=== PATIENT | male | born 1995 | race Caucasian/White ===

== ENCOUNTER 2018-02-03 14:50 | Emergency (ER) | payer SELFPAY ==
[~2018-02-03] VITALS: Ht 180.3 cm; Wt 113.4 kg
--- NOTE | 2018-02-03 15:18 | ED.ADGEN ---
Past History Past Medical History: No Pertinent History Past Surgical History: No Surgical History Alcohol Use: Occasionally Drug Use: Cocaine, Marijuana Adult General Chief Complaint Chief Complaint Left forearm redness and pain HPI HPI The patient was injecting methamphetamines on 2 days ago into his left arm and since then has had left forearm swelling, redness and pain. He notes no fevers or other injury. ROM of left arm and hand intact, no numbness or weakness. Review of Systems Review of Systems Constitutional: Denies fever or chills Eyes: Denies change in visual acuity, redness, or eye pain HENT: Denies nasal congestion or sore throat Respiratory: Denies cough or shortness of breath Cardiovascular: Denies chest pain or palpitations GI: Denies abdominal pain, nausea, vomiting, bloody stools or diarrhea : Denies dysuria or hematuria Musculoskeletal: Denies back pain or joint pain Integument: Denies rash. Left forearm redness, pain and swelling. No drainage Neurologic: Denies headache, focal weakness or sensory changes Endocrine: Denies polyuria or polydipsia All other systems were reviewed and found to be within normal limits, except as documented in this note. Current Medications Current Medications Current Medications Medications (Trade) Dose Ordered Sig/Joshua Start Time Stop Time Status Last Admin Dose Admin Clindamycin Phosphate 50 ml @ 100 mls/hr 1X ONCE 02/03/18 15:50 02/03/18 16:19 DC 02/03/18 16:03 100 MLS/HR Diphtheria/ Tetanus/Acell Pertussis (Boostrix) 0.5 ml ONCE ONCE 02/03/18 15:45 02/03/18 15:46 DC 02/03/18 16:06 0.5 ML Allergies Allergies Allergies Coded Allergies Type Severity Reaction Last Updated Verified No Known Drug Allergies 06/09/16 No Physical Exam Physical Exam Constitutional: Well developed, well nourished, no acute distress, non-toxic appearance. HENT: Normocephalic, atraumatic, bilateral external ears normal, oropharynx moist, no oral exudates, nose normal. Eyes: PERRLA, EOMI, conjunctiva normal, no discharge. Neck: Normal range of motion, no tenderness, supple, no stridor. Cardiovascular:Heart rate regular rhythm, no murmur Lungs & Thorax: Bilateral breath sounds clear to auscultation Abdomen: Bowel sounds normal, soft, no tenderness, no masses, no pulsatile masses. Skin: Warm, dry, no erythema, no rash. Back: No tenderness, no CVA tenderness. Extremities: With left forearm tenderness, erythema, induration and swelling, no fluctuance or drainage, no cyanosis, no clubbing, ROM intact, no edema. DNVI. Neurologic: Alert and oriented X 3, normal motor function, normal sensory function, no focal deficits noted. Psychologic: Affect normal, judgement normal, mood normal. Current Patient Data Vital Signs Vital Signs Date Time Temp Pulse Resp B/P (MAP) Pulse Ox O2 Delivery O2 Flow Rate FiO2 02/03/18 17:00 100 20 150/90 (110) 95 Room Air 02/03/18 14:50 97.0 Lab Results Laboratory Tests Test 02/03/18 15:30 White Blood Count 8.9 x10^3/uL (4.0-11.0) Red Blood Count 5.43 x10^6/uL (4.30-5.70) Hemoglobin 15.9 g/dL (13.0-17.5) Hematocrit 46.1 % (39.0-53.0) Mean Corpuscular Volume 85 fL (79-100) Mean Corpuscular Hemoglobin 29 pg (25-35) Mean Corpuscular Hemoglobin Concent 35 g/dL (31-37) Red Cell Distribution Width 13.3 % (11.5-14.5) Platelet Count 258 x10^3/uL (140-400) Neutrophils (%) (Auto) 57 % (31-73) Lymphocytes (%) (Auto) 33 % (24-48) Monocytes (%) (Auto) 9 % (0-9) Eosinophils (%) (Auto) 1 % (0-3) Basophils (%) (Auto) 0 % (0-3) Neutrophils # (Auto) 5.0 x10^3uL (1.8-7.7) Lymphocytes # (Auto) 3.0 x10^3/uL (1.0-4.8) Monocytes # (Auto) 0.8 x10^3/uL (0.0-1.1) Eosinophils # (Auto) 0.1 x10^3/uL (0.0-0.7) Basophils # (Auto) 0.0 x10^3/uL (0.0-0.2) Sodium Level 138 mmol/L (136-145) Potassium Level 3.8 mmol/L (3.5-5.1) Chloride Level 103 mmol/L (98-107) Carbon Dioxide Level 31 mmol/L (21-32) Anion Gap 4 (6-14) L Blood Urea Nitrogen 13 mg/dL (8-26) Creatinine 0.9 mg/dL (0.7-1.3) Estimated GFR (Cockcroft-Gault) 104.6 Glucose Level 91 mg/dL (70-99) Calcium Level 9.7 mg/dL (8.5-10.1) Laboratory Tests Test 02/03/18 15:30 White Blood Count 8.9 x10^3/uL Red Blood Count 5.43 x10^6/uL Hemoglobin 15.9 g/dL Hematocrit 46.1 % Mean Corpuscular Volume 85 fL Mean Corpuscular Hemoglobin 29 pg Mean Corpuscular Hemoglobin Concent 35 g/dL Red Cell Distribution Width 13.3 % Platelet Count 258 x10^3/uL Neutrophils (%) (Auto) 57 % Lymphocytes (%) (Auto) 33 % Monocytes (%) (Auto) 9 % Eosinophils (%) (Auto) 1 % Basophils (%) (Auto) 0 % Neutrophils # (Auto) 5.0 x10^3uL Lymphocytes # (Auto) 3.0 x10^3/uL Monocytes # (Auto) 0.8 x10^3/uL Eosinophils # (Auto) 0.1 x10^3/uL Basophils # (Auto) 0.0 x10^3/uL Sodium Level 138 mmol/L Potassium Level 3.8 mmol/L Chloride Level 103 mmol/L Carbon Dioxide Level 31 mmol/L Anion Gap 4 Blood Urea Nitrogen 13 mg/dL Creatinine 0.9 mg/dL Estimated GFR (Cockcroft-Gault) 104.6 Glucose Level 91 mg/dL Calcium Level 9.7 mg/dL Current Medications Medications (Trade) Dose Ordered Sig/Joshua Route PRN Reason Start Time Stop Time Status Last Admin Dose Admin Diphtheria/ Tetanus/Acell Pertussis (Boostrix) 0.5 ml ONCE ONCE VAX IM 02/03/18 15:45 02/03/18 15:46 DC 02/03/18 16:06 0.5 ML Clindamycin Phosphate 50 ml @ 100 mls/hr 1X ONCE IV 02/03/18 15:50 02/03/18 16:19 DC 02/03/18 16:03 100 MLS/HR EKG EKG [] Radiology/Procedures Radiology/Procedures [address] [id number] IMAGING REPORT Signed PATIENT: NIGEL CRUZ ACCOUNT: [id number] : 1995 LOCATION: ER AGE: 22 SEX: M EXAM STATUS: PRE ER ORD. PHYSICIAN: RAVIN MEJAI MD REASON: FB evalu PROCEDURE: FOREARM LEFT Left forearm radiograph 02/03/2018 3:42 PM INDICATION: Left forearm pain and swelling. Foreign body. COMPARISON: None available. TECHNIQUE: 2 views of the left forearm are provided. FINDINGS: There is no acute fracture or dislocation. Bone mineralization is within normal limits. Joint spaces are maintained. Regional soft tissues are within normal limits. There is no soft tissue gas or osseous erosion. IMPRESSION: No acute fracture or dislocation. No radiopaque foreign bodies visualized. Electronically signed by: Patrick Jacobo MD (02/03/2018 3:58 PM) [facility] [place] DICTATED AND SIGNED BY: PATRICK JACOBO MD DATE: 02/03/18 155 CC: RAVIN MEJIA MD; PCP,NO ~ Course & Med Decision Making Course & Med Decision Making Patient presents with left forearm redness and pain after injecting amphetamines DDx-abscess, cellulitis, Foreign body 16:55 Patient's left forearm pain and swelling improved after IV clindamycin with decreased erythema. There was no fluctuance. Left forearm x-ray was unremarkable, no FB or fracture. Labs unremarkable. Patient was given TDAP IM. Patient was advised to stop using drugs and to take antibiotics as prescribed. Patient advised to return to emergency department if he develops worse pain or swelling redness fevers Final Impression Final Impression Clinical Impression Left Forearm Cellulitis Methamphetamine abuse Dragantolin Disclaimer Hansa Disclaimer This electronic medical record was generated, in whole or in part, using a voice recognition dictation system. Departure Departure: Impression: Primary Impression: Cellulitis of left forearm Additional Impression: Methamphetamine abuse Disposition: 01 HOME, SELF-CARE Condition: STABLE Referrals: CHELLE CLARKE MD Follow-up on Monday for further evaluation Patient Instructions: Cellulitis, Cyyg-hs-Hgmt, Methamphetamine Abuse, Complications Scripts Cephalexin (KEFLEX) 500 Mg Capsule 1 CAP PO TID, #30 CAP Prov: RAVIN MEJIA MD 02/03/18 Sulfamethoxazole/Trimethoprim (BACTRIM DS TABLET) 1 Each Tablet 2 TAB PO BID, #40 TAB Prov: RAVIN MEJIA MD 02/03/18 RAVIN MEJIA MD Feb 03, 2018 15:18
[2018-02-03] MEDS ORDERED: DIPHTH,PERTUSS(ACELL),TET TOX 0.5 ML DISP.SYRIN. VAX IM ONE (15:45)
[2018-02-03] MEDS ORDERED: CLINDAMYCIN 900MG PREMIX 50 ML IV ONE (15:50)
[2018-02-03 15:51] LABS: BASO % 0 % (0-3); EOS # 0.1 x10^3/uL (0.0-0.7); EOS % 1 % (0-3); HEMATOCRIT 46.1 % (39.0-53.0); HEMOGLOBIN 15.9 g/dL (13.0-17.5); LYMPH % 33 % (24-48); MEAN CORPUSCULAR HEMOGLOBIN 29 pg (25-35); MEAN CORPUSCULAR HGB CONC 35 g/dL (31-37); MEAN CORPUSCULAR VOLUME 85 fL (79-100); MONO # 0.8 x10^3/uL (0.0-1.1); MONO % 9 % (0-9); NEUT % 57 % (31-73); PLATELET COUNT 258 x10^3/uL (140-400); RED BLOOD COUNT 5.43 x10^6/uL (4.30-5.70); RED CELL DISTRIBUTION WIDTH 13.3 % (11.5-14.5); WHITE BLOOD COUNT 8.9 x10^3/uL (4.0-11.0)
[2018-02-03 15:55] LABS: CALCIUM 9.7 mg/dL (8.5-10.1); CREATININE 0.9 mg/dL (0.7-1.3); GFR 104.6; POTASSIUM 3.8 mmol/L (3.5-5.1)
--- NOTE | 2018-02-03 16:01 | RAD ---
Left forearm radiograph 02/03/2018 3:42 PM INDICATION: Left forearm pain and swelling. Foreign body. COMPARISON: None available. TECHNIQUE: 2 views of the left forearm are provided. FINDINGS: There is no acute fracture or dislocation. Bone mineralization is within normal limits. Joint spaces are maintained. Regional soft tissues are within normal limits. There is no soft tissue gas or osseous erosion. IMPRESSION: No acute fracture or dislocation. No radiopaque foreign bodies visualized. Electronically signed by: Roxie Pugh MD (02/03/2018 3:58 PM) [facility] [place]
[2018-02-03 17:00] VITALS: BP 150/90
[2018-02-03] MEDS ORDERED: CEPH-264 PO (17:03)
[2018-02-03] MEDS ORDERED: SULF1TAB24 PO (17:03)
== END 2018-02-03 17:10 | disposition home or self-care (01) ==
LOC: ER 14:50
DX: L03.114 Cellulitis of left upper limb (principal); F15.10 Other stimulant abuse, uncomplicated
CPT/HCPCS: 36415; 73090; 80048; 85025; 90471; 90715; 96365; 99285; J3490

== ENCOUNTER 2018-06-13 00:13 | Emergency (ER) | payer SELFPAY ==
[~2018-06-13] VITALS: Ht 180.3 cm; Wt 120.2 kg
[~2018-06-13 00:13] MED LIST: CEPH-264 PO; SULF1TAB24 PO
[2018-06-13] MEDS ORDERED: SULF1TAB24 PO (00:34)
--- NOTE | 2018-06-13 00:38 | PHYS DOC ---
Adult General Chief Complaint Chief Complaint dog bite HPI HPI dog bite to left arm , 1 weeka go , pus drainged on left arm, redness, no fever Review of Systems Review of Systems Constitutional: Denies fever or chills [] Eyes: Denies change in visual acuity, redness, or eye pain [] HENT: Denies nasal congestion or sore throat [] Respiratory: Denies cough or shortness of breath [] Cardiovascular: No additional information not addressed in HPI [] GI: Denies abdominal pain, nausea, vomiting, bloody stools or diarrhea [] : Denies dysuria or hematuria [] Musculoskeletal: Denies back pain or joint pain [] Integument: Denies rash or skin lesions [] Neurologic: Denies headache, focal weakness or sensory changes [] Endocrine: Denies polyuria or polydipsia [] All other systems were reviewed and found to be within normal limits, except as documented in this note. Allergies Allergies Allergies Coded Allergies Type Severity Reaction Last Updated Verified No Known Drug Allergies 06/09/16 No Physical Exam Physical Exam Constitutional: Well developed, well nourished, no acute distress, non-toxic appearance. [] HENT: Normocephalic, atraumatic, bilateral external ears normal, oropharynx moist, no oral exudates, nose normal. [] Eyes: PERRLA, EOMI, conjunctiva normal, no discharge. [] Neck: Normal range of motion, no tenderness, supple, no stridor. [] Cardiovascular:Heart rate regular rhythm, no murmur [] Lungs & Thorax: Bilateral breath sounds clear to auscultation [] Abdomen: Bowel sounds normal, soft, no tenderness, no masses, no pulsatile masses. [] Skin: red, swollen, tender arm[] Back: No tenderness, no CVA tenderness. [] Extremities: No tenderness, no cyanosis, no clubbing, ROM intact, no edema. [] Neurologic: Alert and oriented X 3, normal motor function, normal sensory function, no focal deficits noted. [] Psychologic: Affect normal, judgement normal, mood normal. [] EKG EKG [] Radiology/Procedures Radiology/Procedures [] Course & Med Decision Making Course & Med Decision Making Pertinent Labs and Imaging studies reviewed. (See chart for details) [] Final Impression Final Impression [] Problems: (1) Dog bite of extremity Dragon Disclaimer Dragon Disclaimer This electronic medical record was generated, in whole or in part, using a voice recognition dictation system. OMEGA JIMÉNEZ MD Jun 13, 2018 00:38
[2018-06-13 01:12] VITALS: BP 164/108
== END 2018-06-13 01:00 | disposition home or self-care (01) ==
LOC: ER 00:13
DX: S41.152A Open bite of left upper arm, initial encounter (principal); W54.0XXA Bitten by dog, initial encounter; Y93.89 Activity, other specified; Y92.89 Other specified places as the place of occurrence of the external cause; Y99.8 Other external cause status
CPT/HCPCS: 99283

== ENCOUNTER 2018-08-09 19:20 | Inpatient (IN) | payer SELFPAY ==
[~2018-08-09] VITALS: Ht 180.3 cm; Wt 114.0 kg
[2018-08-09] MEDS ORDERED: VANCOMYCIN PER PHARMACY MC ONE (19:45)
[2018-08-09] MEDS ORDERED: IV NORMAL SALINE 1,000ML 1,000 ML IV SCH (19:45)
[2018-08-09] MEDS ORDERED: VANCOMYCIN 1 GM VIAL. ONE ×2 (19:50→20:03)
[2018-08-09] MEDS ORDERED: IV NORMAL SALINE 500ML 500 ML ONE (19:50)
[2018-08-09] MEDS ORDERED: VANCOMYCIN 2 GM in IV NORMAL SALINE 500ML 500 ML IV ONE (20:00)
[2018-08-09 20:01] LABS: BASO % 0 % (0-3); EOS % 0 % (0-3); HEMATOCRIT 44.1 % (39.0-53.0); LYMPH # 1.7 x10^3/uL (1.0-4.8); LYMPH % 17 % (24-48); MEAN CORPUSCULAR HEMOGLOBIN 29 pg (25-35); MEAN CORPUSCULAR HGB CONC 34 g/dL (31-37); MEAN CORPUSCULAR VOLUME 86 fL (79-100); MONO # 0.9 x10^3/uL (0.0-1.1); MONO % 8 % (0-9); NEUT # 7.5 x10^3uL (1.8-7.7); NEUT % 74 % (31-73); PLATELET COUNT 215 x10^3/uL (140-400); RED BLOOD COUNT 5.15 x10^6/uL (4.30-5.70); RED CELL DISTRIBUTION WIDTH 13.6 % (11.5-14.5); WHITE BLOOD COUNT 10.2 x10^3/uL (4.0-11.0)
--- NOTE | 2018-08-09 20:07 | PHYS DOC ---
Past History Past Medical History: No Pertinent History Past Surgical History: Cervical Fusion, Other Alcohol Use: Occasionally Drug Use: Cocaine Adult General Chief Complaint Chief Complaint: FOOT INJURY PAIN HPI HPI Patient is a 23-year-old male who presents with complaint of swelling, pain and redness to his left foot. Patient reportedly had a small ulceration to the dorsum of his second toe a few weeks ago and he admits to picking at it. He states that 2 days ago he started to get some increased pain and yesterday had gone out working on his car for about 8 hours and when he got back he had a lot of pain, swelling and redness in his foot. He denies any fever, nausea or vomiting. Review of Systems Review of Systems Constitutional: Denies fever or chills [] Respiratory: Denies cough or shortness of breath [] Cardiovascular: No additional information not addressed in HPI [] Musculoskeletal: Positive left foot swelling, redness and pain [] Integument: Denies rash [] All other systems were reviewed and found to be within normal limits, except as documented in this note. Current Medications Current Medications Current Medications Medications (Trade) Dose Ordered Sig/Joshua Start Time Stop Time Status Last Admin Dose Admin Sodium Chloride 500 ml @ As Directed STK-MED ONCE 08/09/18 19:50 08/09/18 19:52 DC Vancomycin HCl (Vanco Per Pharmacy) 1 each 1X ONCE 08/09/18 19:45 08/09/18 19:47 DC Vancomycin HCl (Vancomycin) 1 gm STK-MED ONCE 08/09/18 19:50 08/09/18 19:52 DC Vancomycin HCl 2 gm/Sodium Chloride 500 ml @ 250 mls/hr 1X ONCE 08/09/18 20:00 08/09/18 21:59 08/09/18 19:56 250 MLS/HR Allergies Allergies Allergies Coded Allergies Type Severity Reaction Last Updated Verified No Known Drug Allergies 06/09/16 No Physical Exam Physical Exam Constitutional: Well developed, well nourished, no acute distress, non-toxic appearance. [] HENT: Normocephalic, atraumatic, bilateral external ears normal, oropharynx moist, no oral exudates, nose normal. [] Eyes: PERRLA, EOMI, conjunctiva normal, no discharge. [] Neck: Normal range of motion, no tenderness, supple, no stridor. [] Cardiovascular: Regular rate and rhythm [] Lungs & Thorax: Bilateral breath sounds clear to auscultation [] Abdomen: Bowel sounds normal, soft, no tenderness. [] Skin: Dorsum of left foot demonstrates moderate soft tissue swelling with warmth , tenderness and erythema. There is some lymphangitic streaking. [] Extremities: No cyanosis, no clubbing, ROM intact, no edema. [] Neurologic: Alert and oriented X 3, no focal deficits noted. [] Current Patient Data Vital Signs Vital Signs Date Time Temp Pulse Resp B/P (MAP) Pulse Ox O2 Delivery O2 Flow Rate FiO2 08/09/18 19:20 98.5 109 18 99 Room Air Lab Results Laboratory Tests Test 08/09/18 19:40 White Blood Count 10.2 x10^3/uL (4.0-11.0) Red Blood Count 5.15 x10^6/uL (4.30-5.70) Hemoglobin 15.0 g/dL (13.0-17.5) Hematocrit 44.1 % (39.0-53.0) Mean Corpuscular Volume 86 fL (79-100) Mean Corpuscular Hemoglobin 29 pg (25-35) Mean Corpuscular Hemoglobin Concent 34 g/dL (31-37) Red Cell Distribution Width 13.6 % (11.5-14.5) Platelet Count 215 x10^3/uL (140-400) Neutrophils (%) (Auto) 74 % (31-73) H Lymphocytes (%) (Auto) 17 % (24-48) L Monocytes (%) (Auto) 8 % (0-9) Eosinophils (%) (Auto) 0 % (0-3) Basophils (%) (Auto) 0 % (0-3) Neutrophils # (Auto) 7.5 x10^3uL (1.8-7.7) Lymphocytes # (Auto) 1.7 x10^3/uL (1.0-4.8) Monocytes # (Auto) 0.9 x10^3/uL (0.0-1.1) Eosinophils # (Auto) 0.0 x10^3/uL (0.0-0.7) Basophils # (Auto) 0.0 x10^3/uL (0.0-0.2) EKG EKG [] Radiology/Procedures Radiology/Procedures [] Course & Med Decision Making Course & Med Decision Making Pertinent Labs and Imaging studies reviewed. (See chart for details) [] Dragon Disclaimer Dragon Disclaimer This electronic medical record was generated, in whole or in part, using a voice recognition dictation system. Departure Departure: Impression: Primary Impression: Cellulitis of left foot Disposition: ADMITTED INPATIENT Admitting Physician: Tono Noonan Condition: GOOD Referrals: PCP,NO (PCP) MIKE FERNÁNDEZ Jr. DO Aug 09, 2018 20:07
[2018-08-09 20:09] LABS: CALCIUM 9.3 mg/dL (8.5-10.1); CREATININE 0.7 mg/dL (0.7-1.3); GFR 138.6; POTASSIUM 3.6 mmol/L (3.5-5.1)
[2018-08-09 21:03] LABS: AMPHETAMINE/METHAMPHETAMINE POS (NEG); BARBITURATES NEG (NEG); BENZODIAZEPINES NEG (NEG); CANNABINOIDS POS (NEG); COCAINE NEG (NEG); METHADONE NEG (NEG); OPIATES NEG (NEG); PHENCYCLIDINE NEG (NEG)
[2018-08-09 21:15] VITALS: BP 165/93
[2018-08-09] MEDS: IV NORMAL SALINE 1,000ML 1,000 ML IV SCH (22:20)
[2018-08-09] MEDS: VANCOMYCIN PER PHARMACY MC PRN (22:44)
[2018-08-09] MEDS: ACETAMINOPHEN 325 MG TABLET PO PRN (22:47)
[2018-08-09] MEDS: diphenhydrAMINE 50 MG/ML VIAL IVP PRN (22:47)
[2018-08-10 00:30] VITALS: BP 142/84
[2018-08-10 05:37] VITALS: BP 105/67
[2018-08-10] MEDS: IV NORMAL SALINE 1,000ML 1,000 ML IV SCH ×2 (05:43→17:09)
[2018-08-10 06:25] LABS: BASO % 0 % (0-3); EOS # 0.1 x10^3/uL (0.0-0.7); EOS % 1 % (0-3); HEMATOCRIT 40.8 % (39.0-53.0); HEMOGLOBIN 13.8 g/dL (13.0-17.5); LYMPH # 2.5 x10^3/uL (1.0-4.8); LYMPH % 31 % (24-48); MEAN CORPUSCULAR HEMOGLOBIN 29 pg (25-35); MEAN CORPUSCULAR HGB CONC 34 g/dL (31-37); MEAN CORPUSCULAR VOLUME 86 fL (79-100); MONO # 0.9 x10^3/uL (0.0-1.1); MONO % 11 % (0-9); NEUT # 4.5 x10^3uL (1.8-7.7); NEUT % 56 % (31-73); PLATELET COUNT 190 x10^3/uL (140-400); RED BLOOD COUNT 4.72 x10^6/uL (4.30-5.70); RED CELL DISTRIBUTION WIDTH 13.4 % (11.5-14.5)
[2018-08-10 06:29] LABS: CALCIUM 8.5 mg/dL (8.5-10.1); CREATININE 0.8 mg/dL (0.7-1.3); GFR 118.8; POTASSIUM 3.6 mmol/L (3.5-5.1)
[2018-08-10] MEDS ORDERED: VANCOMYCIN 2 GM in IV NORMAL SALINE 500ML 500 ML IV SCH (08:00)
[2018-08-10] MEDS: diphenhydrAMINE 50 MG/ML VIAL IVP PRN ×2 (09:06→19:59)
[2018-08-10] MEDS: LACTOBACILLUS RHAMNOSUS GG 1 CAPSULE. PO SCH ×2 (09:10→19:59)
[2018-08-10] MEDS: VANCOMYCIN 1.75 GM in IV NORMAL SALINE 500ML 500 ML IV SCH ×2 (09:11→19:58)
[2018-08-10 11:08] VITALS: BP 126/75
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
[2018-08-10 15:34] VITALS: BP 108/61
[2018-08-10 19:08] VITALS: BP 128/74
--- NOTE | 2018-08-10 19:32 | PN ---
DATE: 08/10/2018 SUBJECTIVE: The patient was admitted yesterday with cellulitis of the left foot for which he was started on IV vancomycin. He apparently developed redness after he finished, and itching for which he did receive Benadryl. Apparently he was premedicated this morning with Benadryl and he did very well. PHYSICAL EXAMINATION: GENERAL: When I saw him this morning, he looked well and was clearly in no apparent respiratory distress. No pallor, jaundice, cyanosis, or thyromegaly. No jugular venous distension. No limb edema. VITAL SIGNS: His heart rate was 74, blood pressure 105/67, temperature was 98, respiratory rate 20, and oxygen saturation was 99% on room air. HEAD, EYES, EARS, NOSE AND THROAT: Normocephalic, atraumatic. On his clinical exam he is stable. He continued to have redness and swelling on the dorsal aspect of the left second toe and the dorsal aspect of the left foot with lymphangitic streaking that is fading away. LABORATORY DATA: This morning showed a white cell count is down to 8000, hemoglobin 13.8, hematocrit 41, MCV 86 and platelet count of 190,000. Serum sodium 142, potassium 3.6, chloride 105, bicarbonate 28, anion gap of 9, BUN 11, creatinine 0.8. Estimated GFR was 118 mL per minute. His glucose 93, calcium was 8.5. His cultures are still pending. PLAN: My plan is to add another antibiotic to cover other possibilities and especially the gram-negative rods and given that he was picking on it and evaluate him again tomorrow and if the redness and swelling subsided, he can be discharged home on oral antibiotic. AARTI HOUGH MD DR: BIRD/paolo JOB#: [id number] / [id number]
[2018-08-10] MEDS: ACETAMINOPHEN 325 MG TABLET PO PRN (19:58)
[2018-08-10 22:16] VITALS: BP 95/59
[2018-08-11 05:43] VITALS: BP 109/72
[2018-08-11 08:12] LABS: VANC TR 5.5 mcg/mL (10.0-20.0)
[2018-08-11] MEDS: diphenhydrAMINE 50 MG/ML VIAL IVP PRN ×2 (08:26→16:30)
[2018-08-11] MEDS: LACTOBACILLUS RHAMNOSUS GG 1 CAPSULE. PO SCH ×2 (08:26→20:13)
[2018-08-11] MEDS: VANCOMYCIN 1.75 GM in IV NORMAL SALINE 500ML 500 ML IV SCH ×2 (08:26→16:28)
[2018-08-11] MEDS: VANCOMYCIN PER PHARMACY MC PRN (09:18)
[2018-08-11 10:35] VITALS: BP 128/82
[2018-08-11] MEDS ORDERED: ACETAMINOPHEN 325 MG TABLET PO PRN (10:45)
--- NOTE | 2018-08-11 10:47 | PN ---
DATE: 08/11/2018 SUBJECTIVE: The patient is resting flat in bed, in no apparent respiratory distress, sleepy but arousable. On questioning him, he denied any pain. Denied any chills, rigors or fever. Fortunately, he continued to have marked swelling and erythema of his left second toe and left foot. OBJECTIVE: GENERAL: When I examined him; however, he looked well and was clearly in no apparent respiratory distress. No pallor, jaundice, cyanosis, or thyromegaly. No jugular venous distension. No limb edema. VITAL SIGNS: His heart rate was 65, blood pressure was 109/72, temperature was 97.7, respiratory rate 16, and oxygen saturation was 98%. EXTREMITIES: Examination of left foot compared to the right showed that he has erythema with scabbing of the wounds on the dorsal aspect of the left second toe. There is also erythema and swelling in the dorsal aspect of left foot; however, all the lymphangitic streaking on his left leg has resolved. LABORATORY DATA: This morning showed his white cell count is down to 8000, hemoglobin 13.8, hematocrit 40.8, MCV 86 and platelet count of 190,000. Serum sodium 142, potassium 3.6, chloride 105, bicarbonate 28, anion gap of 9, BUN 11, creatinine 0.8, estimated GFR was 118 mL per minute. His lactic acid was only 0.8 and calcium was 8.5. His vancomycin trough level was low at 5.5. He is now getting vancomycin of 1.75 grams IV every 8 hours as well as ceftriaxone and Benadryl. ASSESSMENT: Left lower extremity cellulitis. PLAN: My plan is to continue with IV antibiotic and hoping that once his redness and swelling has subsided we can discharge him on oral antibiotic. Meanwhile, given that he is mostly bed bound, I will start him on Lovenox 40 mg subcutaneous once a day for DVT prophylaxis. AARTI HOUGH MD DR: BIRD/paolo JOB#: [id number] / [id number]
[2018-08-11] MEDS: ENOXAPARIN 40 MG/0.4 ML SYRINGE. SQ SCH (10:57)
[2018-08-11 15:44] VITALS: BP 145/77
[2018-08-11 19:36] VITALS: BP 117/64
--- NOTE | 2018-08-11 21:12 | RAD ---
Three-view left foot dated 08/11/2018. COMPARISON: None. CLINICAL INDICATION: History of cellulitis. Swelling. FINDINGS: 3 views of left foot show normal bony alignment. No displaced fracture. There is soft tissue swelling over the dorsum of the foot. No soft tissue gas. No bone destruction or periostitis. IMPRESSION: Soft tissue swelling with no apparent underlying acute bony abnormality. Electronically signed by: Jackson Lo MD (08/11/2018 9:07 PM) [facility]
[2018-08-11 22:57] VITALS: BP 113/68
[2018-08-12] MEDS: diphenhydrAMINE 50 MG/ML VIAL IVP PRN ×4 (00:14→23:31)
[2018-08-12] MEDS: VANCOMYCIN 1.75 GM in IV NORMAL SALINE 500ML 500 ML IV SCH ×4 (00:14→23:30)
[2018-08-12 05:31] VITALS: BP 101/61
[2018-08-12 08:04] LABS: VANC TR 13.4 mcg/mL (10.0-20.0)
[2018-08-12] MEDS: ENOXAPARIN 40 MG/0.4 ML SYRINGE. SQ SCH (08:37)
[2018-08-12] MEDS: LACTOBACILLUS RHAMNOSUS GG 1 CAPSULE. PO SCH ×2 (08:37→19:36)
[2018-08-12] MEDS: VANCOMYCIN PER PHARMACY MC PRN (08:38)
[2018-08-12] MEDS ORDERED: CALCIUM CARBONATE 500 MG TAB.CHEW PO PRN (09:15)
[2018-08-12 10:25] VITALS: BP 124/67
--- NOTE | 2018-08-12 11:21 | PN ---
DATE: 08/12/2018 SUBJECTIVE: The patient is resting slightly propped up, sleeping comfortably. As he gets Benadryl before his vancomycin. His trough level yesterday was 5.5, so the dose was increased and his trough level today is within therapeutic range at 13.4. The erythema and swelling is fading away. His x-ray of his left foot was asymptomatic. His x-ray showed no evidence of any bony destruction or periostitis. It did show soft tissue swelling over the dorsum of foot. PHYSICAL EXAMINATION: GENERAL: When I examined him this morning, he looked well and was clearly in no apparent respiratory distress. No pallor, jaundice, cyanosis, or thyromegaly. No jugular venous distension. No limb edema. VITAL SIGNS: Her heart rate was 72, blood pressure was 101/61, temperature was 97.9, respiratory rate was 18 and oxygen saturation was 98%. The rest of the clinical examination is unremarkable. The swelling and erythema of the dorsum aspect of left foot is fading slowly. ASSESSMENT: Left lower extremity cellulitis. PLAN: To continue the IV antibiotic for one more day and I am hoping tomorrow to switch him to oral antibiotic to finish treatment as an outpatient. AARTI HOUGH MD DR: BIRD/paolo JOB#: [id number] / [id number]
[2018-08-12 15:25] VITALS: BP 127/76
[2018-08-12 19:42] VITALS: BP 118/66
[2018-08-12 23:17] VITALS: BP 144/70
[2018-08-13 05:36] VITALS: BP 116/72
[2018-08-13 06:27] LABS: HEMATOCRIT 41.7 % (39.0-53.0); RED BLOOD COUNT 4.85 x10^6/uL (4.30-5.70); RED CELL DISTRIBUTION WIDTH 13.1 % (11.5-14.5)
[2018-08-13 06:44] LABS: CALCIUM 8.6 mg/dL (8.5-10.1); CREATININE 0.7 mg/dL (0.7-1.3); GFR 138.6; POTASSIUM 3.3 mmol/L (3.5-5.1)
[2018-08-13] MEDS: VANCOMYCIN 1.75 GM in IV NORMAL SALINE 500ML 500 ML IV SCH (08:00)
[2018-08-13] MEDS: LACTOBACILLUS RHAMNOSUS GG 1 CAPSULE. PO SCH (08:41)
[2018-08-13] MEDS: ENOXAPARIN 40 MG/0.4 ML SYRINGE. SQ SCH (08:43)
[2018-08-13] MEDS ORDERED: SULF1TAB24 PO (08:51)
--- NOTE | 2018-08-13 10:22 | DS ---
DATE OF DISCHARGE: 08/13/2018 HOSPITAL COURSE: The patient was admitted with left lower extremity cellulitis, marked redness, swelling and lymphangitis extending proximally to his left leg, was started on IV vancomycin and Rocephin and he did actually very well. All the erythema and the redness and swelling of his left foot, the left second toe has completely subsided. The patient has remained hemodynamically stable, afebrile. His white cell count was normal and his lab works were within acceptable range and the decision was made to discharge him home to finish treatment as an outpatient. PHYSICAL EXAMINATION: GENERAL: When I saw him this morning, he looked well and was clearly in no apparent respiratory distress. No pallor, jaundice, cyanosis or thyromegaly. No jugular venous distention. No lower limb edema. VITAL SIGNS: His heart rate was 67, blood pressure was 116/72, temperature was 98, respiratory rate was 16, and oxygen saturation was 99%. HEENT: Examination of the head, eyes, ears, nose and throat showed normocephalic, atraumatic. NECK: Supple. HEART: Showed normal first and second heart sounds with no gallop, rub or murmur. CHEST: Clear to auscultation. No crepitation or rhonchi. ABDOMEN: Distended, soft. NEUROLOGIC: He was awake, alert, responding appropriately. His cranial nerves are intact. EXTREMITIES: He moves extremities without difficulty, ambulates without assistance or assistive devices. All the redness, swelling of his left foot, left leg has completely subsided. As of this morning, his intake over the last 24 hours was 4000. No output was recorded. LABORATORY DATA: His lab work showed a serum sodium 144, potassium 3.3, chloride 107, bicarbonate 27, anion gap of 10, BUN 3, creatinine 0.7, estimated GFR was 138 mL per minute. His glucose 104, calcium was 8.6. His white cell count was 5000, hemoglobin 14, hematocrit 42, MCV 86, and platelet count of 231,000. DISCHARGE MEDICATIONS: He was discharged home to continue on Bactrim DS 1 tablet twice a day for 7 more days. FINAL DISCHARGE DIAGNOSIS: Left lower extremity cellulitis, resolved. DISCHARGE PLAN: The patient was advised to stay off his foot and he may return back to work on 08/17/2018. AARTI HOUGH MD DR: Naldo JOB#: [id number] / [id number]
== END 2018-08-13 10:35 | disposition home or self-care (01) | DRG 603 ==
LOC: ER 19:20 → 1 SOUTH 20:15
PROVIDERS: ADMIT Internal Medicine; ATTEND Internal Medicine
DX: L03.116 Cellulitis of left lower limb (principal); F12.90 Cannabis use, unspecified, uncomplicated; F17.210 Nicotine dependence, cigarettes, uncomplicated; F14.90 Cocaine use, unspecified, uncomplicated; Z98.1 Arthrodesis status; Z82.49 Family history of ischemic heart disease and other diseases of the circulatory system
CPT/HCPCS: 36415; 73630; 80048; 80202; 80307; 83605; 85025; 85027; 87040; 96365; 99406; J0696; J1200; J1650; J3370; J7040; 99285-25; J7030